=== PATIENT | female | born 1960 | race Caucasian/White ===

== ENCOUNTER 2024-12-05 10:10 | Outpatient (CLI) | payer BC, SELFPAY | END 2024-12-05 10:11 | disposition home or self-care (01) | LOC: NFLDREF 10:11 | PROVIDERS: PCP Family Medicine; Visit Provider Family Medicine | DX: I10 Essential (primary) hypertension (principal) | CPT/HCPCS: 80048 ==

== ENCOUNTER 2024-12-26 10:04 | Outpatient (CLI) | payer BC, SELFPAY | END 2024-12-26 10:05 | disposition home or self-care (01) | LOC: NFLDREF 10:06 | PROVIDERS: PCP Family Medicine; Visit Provider Family Medicine | DX: I10 Essential (primary) hypertension (principal); Z01.818 Encounter for other preprocedural examination | CPT/HCPCS: 80048 ==